=== PATIENT | male | born 1955 | race Two or more races ===

== ENCOUNTER 2022-02-07 12:08 | Day surgery (SDC) | payer MEDICARE, MEDICAID ==
[~2022-02-07] VITALS: Ht 167.6 cm; Wt 104.3 kg
[~2022-02-07 12:08] MED LIST: CT SWABBABLE VALVE TRANS SET 1 EA INFUS.SET MC ONE; IV NS 0.9% 250 ML IV ONE; METOPROLOL TARTRATE INJ 5 MG/5 ML AMPUL ONE; NITROGLYCERIN 0.4 MG/TAB BOTTLE ONE
[2022-02-07] MEDS: METOPROLOL TARTRATE INJ 5 MG/5 ML AMPUL IVP PRN ×5 (12:15→12:50)
[2022-02-07] MEDS ORDERED: METOPROLOL TARTRATE INJ 5 MG/5 ML AMPUL ONE ×3 (12:27→12:36)
[2022-02-07] MEDS ORDERED: NITROGLYCERIN 0.4 MG/TAB BOTTLE SL ONE (12:30)
--- NOTE | 2022-02-07 12:44 | NUR ---
CTA completed, tolerated well, VS stable, denies any pain, total of 40mg of metoprolol IV. will send back the patient to [facility]
[2022-02-07 12:50] VITALS: BP 109/59
== END 2022-02-07 23:59 | disposition home or self-care (01) ==
LOC: CT 12:08
PROVIDERS: ATTEND Internal Medicine Interventional Cardiology
DX: I25.10 Atherosclerotic heart disease of native coronary artery without angina pectoris (principal); J43.9 Emphysema, unspecified
CPT/HCPCS: 75574; J3490 ×4; J7050